=== PATIENT | male | born 1940 | race Caucasian/White ===

== ENCOUNTER 2017-05-19 13:35 | Day surgery (SDC) | payer OTHER ==
[~2017-05-19 13:35] MED LIST: GLUCOTROL10 MG PO; JANUMET XR 50-1 EAC1 PO; LISINOPRIL10 MG PO; SIMVASTATIN10 MG PO
[2017-05-19] MEDS ORDERED: PERCOCET 5-3251 EACH PO (17:29)
[2017-05-19] MEDS ORDERED: KEFLEX500 MG PO (17:30)
[2017-05-19] MEDS ORDERED: TRAMADOL HCL50 MG PO (17:31)
== END 2017-05-19 19:35 | disposition home or self-care (01) ==
LOC: CIR.AMB 13:35
DX: M13.871 Other specified arthritis, right ankle and foot (principal); M19.071 Primary osteoarthritis, right ankle and foot; S86.311A Strain of muscle(s) and tendon(s) of peroneal muscle group at lower leg level, right leg, initial encounter